=== PATIENT | female | born 1965 | race Caucasian/White ===

== ENCOUNTER 2020-01-26 01:00 | Outpatient (CLI) | payer OTHER, SELFPAY ==
[2020-01-26 18:19] LABS: SARS-CoV-2 RNA PCR Negative
== END 2020-01-26 01:01 | disposition home or self-care (01) ==
LOC: ANHCOVIDDT 01:06
PROVIDERS: PCP Internal Medicine Gastroenterology; Visit Provider Urology
DX: Z01.812 Encounter for preprocedural laboratory examination (principal); Z20.828 Contact with and (suspected) exposure to other viral communicable diseases
CPT/HCPCS: 87635; C9803; U0003

== ENCOUNTER 2020-01-28 01:59 | Day surgery (SDC) | payer OTHER, SELFPAY ==
[2020-01-12 09:49] VITALS: BMI 28.4
--- NOTE | 2020-01-23 19:40 | PM.IMHP ---
H&P: HPI History of Present Illness Date/Time: 01/23/20 19:40 Chief complaint: Stress Incontinence Narrative: Yanely Wilcox is a 54 year old female with mixed incotinence. Here for treatment of [facility] Social History Social History Smoking packs per day: 1 Smoking cigarettes per day: 20.0 Years smoked: 30 Smoking pack-years: 30.00 Smoking status: Former smoker Tobacco type: cigarettes Additional smoking assessment comments: QUIT 2013 Spiritual care concerns: No Meds Home Medications and Allergies Home Medications Medication Instructions Recorded Confirmed Type L.acid-L.casei-B.bif-B.jakob-FOS 1 cap PO DAILY 01/12/20 01/12/20 History [Probiotic Blend] linaclotide [Linzess] 290 mcg PO DAILY 01/12/20 01/12/20 History magnesium hydroxide [Milk of 30 ml PO DAILY 01/12/20 01/12/20 History Magnesia] oxybutynin chloride 10 mg PO DAILY 01/12/20 01/12/20 History Allergies Allergy/AdvReac Type Severity Reaction Status Date / Time No Known Allergies Allergy Verified 01/12/20 09:49 Exam Const: General: no acute distress HENMT: Mouth: Yes moist mucous membranes Eyes: General: appearance normal, both eyes and all related structures Resp: Effort & Inspection: normal respiratory effort Neuro: Speech: normal speech Motor exam (neuro): Normal motor muscle tone present throughout Extrem: General: normal to inspection Psych: Affect: normal affect Assessment and Plan Assessment and plan (1) Stress incontinence (female) (male): Code(s): N39.3 - Stress incontinence (female) (male) Status: Acute Assessment and Plan: urethral sling (2) Overactive bladder: Code(s): N32.81 - Overactive bladder Status: Acute Assessment and Plan: continue oxybutynin
--- NOTE | 2020-01-27 11:47 | P.PNAN_ITS ---
Anes - Initial Pre Proc Eval Procedure: Operation Date: 01/28/20 09:30 Proposed Procedures p Urethral Sling - Jas Del Rosario MD Date/Time: 01/27/20 11:47 Surgeon: Jas Del Rosario MD Pre Op Diagnosis: Stress Incontinence Patient Data Age: 54 Gender: F Height: 1.68 m Weight: 79.83 kg Allergies Allergy/AdvReac Type Severity Reaction Status Date / Time No Known Allergies Allergy Verified 01/28/20 07:42 Home Medications Medication Instructions Recorded Confirmed Type L.acid-L.casei-B.bif-B.jakob-FOS 1 cap PO DAILY 01/12/20 01/28/20 History [Probiotic Blend] linaclotide [Linzess] 290 mcg PO DAILY 01/12/20 01/28/20 History magnesium hydroxide [Milk of 30 ml PO DAILY 01/12/20 01/28/20 History Magnesia] oxybutynin chloride 10 mg PO DAILY 01/12/20 01/28/20 History Patient hx anesthesia problems: none Family hx anesthesia problems: none [facility] Past Medical History Medical History (Updated 01/27/20 @ 11:47 by Juan Daniel Pugh DO) Endometriosis Hypertension Lung nodule Surgical History Surgical History (Updated 01/27/20 @ 11:47 by Juan Daniel Pugh DO) History of appendectomy History of cholecystectomy History of hysterectomy Social History Social History Smoking packs per day: 1 Smoking cigarettes per day: 20.0 Years smoked: 30 Smoking pack-years: 30.00 Smoking status: Former smoker Tobacco type: cigarettes Additional smoking assessment comments: QUIT 2013 Spiritual care concerns: No Anes - Eval Final PreProcedure Day of Procedure 01/27/20 11:47 Patient weight: overweight Heart: regular rate and rhythm Lungs: clear to auscultation and normal air movement Airway: Mallampati scale class II Neurological: alert and oriented Last oral intake: >/= 8 hours ASA classification: III Emergent: no Anesthetic plan: proceed Anesthesia type and monitoring: general GIVS and standard monitoring Informed Consent: The patient's anesthetic plan and its attendant risks and benefits were discussed with the patient/family/POA. Questions were solicited and answers provided to the satisfaction of the patient/family/POA.
--- NOTE | 2020-01-28 07:18 | WPDHPUPDATE1 ---
History and Physical Update Update Date/Time: 01/28/20 07:18 History and Physical has been reviewed, including an updated exam of the patient. There are NO changes in the patient's condition. Risks, benefits, and alternatives have been discussed and questions answered. Patient agrees to proceed with procedure.
[2020-01-28] MEDS: LACTATED RINGERS 1,000 ML 30 ML IV CONT (07:54)
[2020-01-28 08:25] VITALS: BP 144/84; PULSE 62; RESP 18; O2SAT 100
[2020-01-28] MEDS: ACETAMINOPHEN 500 MG TABLET 1000 MG PO (08:59)
[2020-01-28] MEDS: ceFAZolin 2 GM/D5W 50 ML 2 GM/50 ML BAG IVPB (09:34)
[2020-01-28] MEDS: BUPIVACAINE/EPINEPHRINE 0.25% 50 ML VIAL INFILTRATE (09:51)
[2020-01-28 10:10] VITALS: BP 122/76; PULSE 59; RESP 12
--- NOTE | 2020-01-28 10:15 | PM.PROC ---
Procedure Note - Detailed Date of procedure: 01/28/20 Pre-op diagnosis: Stress Incontinence Stress urinary incontinence Post-op diagnosis: same Procedure performed: Transobturator Mid-urethral sling Cystoscopy Description of procedure: This is a patient with confirmed stress urinary incontinence. She desires correction. She understands the risks of bleeding, infection, damage to the urinary tract, lack of cure of stress incontinence, recurrence of stress incontinence, postoperative voiding dysfunction including incontinence and retention, need for ancillary procedures to loosen remove the sling, postoperative voiding dysfunction including retention and overactive bladder, hip and leg pain, dyspareunia, mesh related complications including exposure and extrusion. She agrees to proceed. She understands it will not help overactive bladder symptoms if present. She was correctly identified and informed consent obtained. She is brought to the operating room. She was given appropriate anesthesia. She was placed in the dorsal lithotomy position. All pressure points were padded. She was given appropriate perioperative antibiotics and a time-out performed. A Nance catheter is placed. I marked out the thigh incisions anesthetize the skin and made those incisions. I anesthetized the anterior vaginal wall over the mid urethra. I made a 1 cm incision. I dissected out laterally taking great care not to injure the urethra or the vaginal wall. Passed the helical trocars 1st on the left and then on the right from the thigh incision towards the vaginal incision. Sling was connected to the trocars and brought out through the thigh incision. I tensioned the sling appropriately. I cut and removed the plastic sheaths. I closed the incision with 2 0 Vicryl. I then performed cystoscopy. There was no surgical artifact or abnormalities inside the bladder. The urethra was normal without surgical artifact. I cut the excess sling material. I closed the incisions with glue. She was awakened and transferred to the PACU in stable condition. Implants: Mid urethral sling Surgeon: Jas Del Rosario MD Drains: No Packing: No Pathology: none sent Complications: No immediate complications Condition: stable Disposition: PACU
[2020-01-28] MEDS: ONDANSETRON INJ 4 MG/2 ML VIAL IV PUSH (10:37)
[2020-01-28 11:10] VITALS: BP 131/90; PULSE 57; RESP 16
== END 2020-01-28 11:16 | disposition home or self-care (01) ==
PROVIDERS: Visit Provider Urology
PROC: (CPT 51992; principal; 2020-01-28 09:30)
DX: N39.3 Stress incontinence (female) (male) (principal); N32.81 Overactive bladder; Z87.891 Personal history of nicotine dependence
CPT/HCPCS: 51992; A9270; C1771; J0690; J2250; J2405; J2704; J3010; J7030; J7120